=== PATIENT | female | born 1965 | race Caucasian/White ===

== ENCOUNTER 2016-07-02 11:17 | Emergency (ER) | payer OTHER ==
[~2016-07-02] VITALS: Ht 152.4 cm; Wt 97.1 kg
[~2016-07-02 11:17] MED LIST: AMITRIPTYLINE H25 MG PO; ASPIRIN E.C.81 M1 PO; BUSPAR10 MG PO; BUTALB-APAP-CA1 EACH PO; CARAFATE1 GM PO; CATAPRES0.1 MG PO; CELEBREX100 MG PO; CLINDAMYCIN HC300 MG PO; CYCLOBENZAPRINE10 M1 PO; CYMBALTA60 MG PO; DESYREL100 MG PO; DIAZEPAM5 MG PO; DITROPAN XL10 MG PO; EFFEXOR100 MG PO; ELAVIL10 MG PO; ELAVIL25 MG PO; Effexor XR PO; FENTANYL1 EAC5 TD; FLUTICASONE PRO16 GM BOTH NARES; Flexeril PO; GLUCOPHAGE500 MG PO; INDOCIN25 MG PO; LEXAPRO20 MG PO; MEDROL DOSEPAK4 MG PO; METFORMIN HCL500 MG PO; NABUMETONE500 M1 PO; NAPROSYN500 MG PO; NIACIN ER1000 MG PO; ONDANSETRON ODT4 MG PO; OXYBUTYNIN CHLO10 MG PO; OXYCODONE HCL10 MG PO; OXYCODONE HCL5 MG PO; OXYCODONE-APAP1 EAC6 PO; OxyCODONE PO; PERCOCET 5/31 TABLET PO; PHENERGAN12.5 M1 PO; PREDNISONE20 M1 PO; PREDNISONE20 MG PO; PRILOSEC10 MG PO; PRILOSEC40 MG PO; PRINIVIL5 MG PO; PROCARDIA XL30 MG PO; Prilosec PO; REQUIP0.25 MG PO; REQUIP1 MG PO; REQUIP2 MG PO; ROPINIROLE HCL1 MG PO; Reglan PO; SERTRALINE HCL50 MG PO; SIMVASTATIN40 M1 PO; SKELAXIN800 MG PO; SUCRALFATE1 GM PO; SUMATRIPTAN SU100 MG PO; SYMBICORT60 INHALAT IH; TEGRETOL-XR,CA100 MG PO; TOPAMAX100 MG PO; TOPAMAX50 MG PO; TRAMADOL HCL50 MG PO; TRAZODONE HCL150 MG PO; TRAZODONE HCL300 MG PO; Tylenol Regular Stre PO; ULTRACET1 TABLET PO; ULTRAM50 MG PO; VALIUM2 MG PO; VALIUM5 MG PO; VENLAFAXINE HC150 M1 PO; VENLAFAXINE HCL75 M3 PO; VENTOLIN HFA18 GM IH; ZESTORETIC,P1 TABLE1 PO; ZESTORETIC,P1 TABLE2 PO; ZOCOR20 MG PO; ZOFRAN ODT4 MG PO
[2016-07-02] MEDS ORDERED: CLEOCIN300 MG PO (12:16)
[2016-07-02] MEDS ORDERED: PERCOCET 5/31 TABLET PO (12:16)
[2016-07-02 12:27] VITALS: BP 115/82
== END 2016-07-02 12:34 | disposition home or self-care (01) ==
LOC: EME 11:17 → RME 11:17
DX: H60.01 Abscess of right external ear (principal)
CPT/HCPCS: 99281; 99283

== ENCOUNTER 2016-08-11 12:10 | Emergency (ER) | payer OTHER ==
[~2016-08-11] VITALS: Ht 152.4 cm; Wt 95.4 kg
[~2016-08-11 12:10] MED LIST changes: +CLEOCIN300 MG PO
[2016-08-11 12:26] VITALS: BP 114/74
[2016-08-11 15:27] LABS: EOSINOPHIL (%) 0.7 % (0-5); EOSINOPHIL COUNT 0.1 K/uL (0-0.3); HEMATOCRIT 39.4 % (36.0-46.0); IMMATURE GRANULOCYTE (%) 0.3 % (0.0-0.7); IMMATURE GRANULOCYTE COUNT 0.2 K/uL; LYMPHOCYTE COUNT 2.1 K/uL (1.0-2.8); MCH 32.2 PG (29.0-34.0); MCHC 34.3 G/DL (30.0-36.0); MEAN PLAT.VOLUME 9.2 uM^3 (9.5-12.4); MONOCYTE (%) 6.4 % (3-12); MONOCYTE COUNT 0.5 K/uL (0-0.8); NEUTROPHIL (%) 64.6 % (45-76); NEUTROPHIL COUNT 4.9 K/uL (1.8-6.4); PLATELET COUNT 238 K/uL (156-360); RBC DIS.WIDTH-CV 12.8 % (11.8-14.6); RBC DIS.WIDTH-SD 42.5 % (39-53); RED BLOOD COUNT 4.19 M/uL (3.80-5.20); WHITE BLOOD COUNT 7.6 K/uL (4.1-10.2)
[2016-08-11 15:36] LABS: CHLORIDE 108 mEq/L (99-109); POTASSIUM 3.6 mEq/L (3.7-5.4); SODIUM 141 mEq/L (136-147)
[2016-08-11 15:38] LABS: GLUCOSE 101 mg/dL (70-99)
[2016-08-11 15:40] LABS: ANION GAP 12 MEQ/L (2-14)
[2016-08-11 15:54] LABS: GFR ESTIMATE (CALCULATED) > 59 mL/min/; UREA NITROGEN (BUN) 10 mg/dL (9-23)
[2016-08-11 15:57] LABS: INTER. NORMALIZED RATIO 2.8; PROTHROMBIN TIME 29.3 (9.2-11.2)
[2016-08-11 16:51] LABS: APPEARANCE HAZY/YELLOW; RED CELL AREA COUNTED 0.4; RED CELL COUNT 600 /MM^3 (0-1); RED CELL DILUTION 12; WBC DILUTION 12; WHITE CELL RAW COUNT 99
[2016-08-11 16:52] LABS: WBC AREA COUNTED 0.4; WHITE CELL COUNT 29700 /MM^3 (0-200.0)
[2016-08-11 17:02] LABS: MONO RAW COUNT 16; MONONUCLEAR WBC'S 16 %; POLY RAW COUNT 84; POLYNUCLEAR WBC'S 84 % (0-25); SYNOVIAL FLUID EOSINOPHILS 0 % (0-25)
[2016-08-11] MEDS ORDERED: MOBIC15 MG PO (17:10)
[2016-08-12 06:47] LABS: CRYSTALS NO CRYSTALS SEEN
[2016-08-12 10:31] LABS: LYME DISEASE SEROLOGY SCREEN NEGATIVE (NEGATIVE)
== END 2016-08-11 19:02 | disposition left against medical advice (07) ==
LOC: EME 12:10
PROVIDERS: Physician Assistant
PROC: 0S9D3ZZ Drainage of Left Knee Joint, Percutaneous Approach (ICD-10-PCS; principal; 2016-08-11)
DX: M25.462 Effusion, left knee (principal); M17.9 Osteoarthritis of knee, unspecified
CPT/HCPCS: 73564; 80048; 83605; 85025; 85610; 86618; 86705; 87040; 87205; 87340; 89051; 89060; 99281; 99284; J3010

== ENCOUNTER 2017-04-10 12:02 | Emergency (ER) | payer OTHER ==
[~2017-04-10] VITALS: Ht 152.4 cm; Wt 102.7 kg
[~2017-04-10 12:02] MED LIST changes: +MOBIC15 MG PO
[2017-04-10 12:55] LABS: ADD MIUA? YES; BILIRUBIN NEGATIVE; BLOOD NEGATIVE; COLOR YELLOW ((YELLOW)); GLUCOSE (STRIP) NEGATIVE; KETONES NEGATIVE; LEUKOCYTES TRACE; NITRITE NEGATIVE; PROTEIN (STRIP) 30; SPECIFIC GRAVITY 1.008 (1.000-1.030); UROBILINOGEN 0.2 MG/DL (0.2-1.0)
[2017-04-10 12:59] LABS: HEMATOCRIT 45.3 % (36.0-46.0); MCH 32.8 PG (29.0-34.0); MCHC 34.9 G/DL (30.0-36.0); MEAN PLAT.VOLUME 9.4 uM^3 (9.5-12.4); PLATELET COUNT 239 K/uL (156-360); RBC DIS.WIDTH-CV 14.2 % (11.8-14.6); RBC DIS.WIDTH-SD 48.9 % (39-53); RED BLOOD COUNT 4.82 M/uL (3.80-5.20); WHITE BLOOD COUNT 6.3 K/uL (4.1-10.2)
[2017-04-10 13:05] LABS: PROTHROMBIN TIME 22.9 SEC (10.2-12.9)
[2017-04-10 13:07] LABS: PTT 40.2 SEC (25-37)
[2017-04-10 13:08] LABS: EPITHELIAL CELLS 1+ /HPF
[2017-04-10 13:09] LABS: ADD MEDTOX COMMENT Y; AMPHETAMINE NEGATIVE (500 ng/mL); BACTERIA 1+ /HPF; BARBITURATES NEGATIVE (200 ng/mL); BENZODIAZEPINES PRESUMPTIVE POSITIVE (150 ng/mL); CASTS NONE SEEN /LPF; COCAINE NEGATIVE (150 ng/mL); CRYSTALS NONE SEEN; INTERNAL CONTROLS VALID? YES; METHADONE NEGATIVE (200 ng/mL); METHAMPHETAMINE NEGATIVE (500 ng/mL); MUCUS NONE SEEN /LPF; OPIATES (MORPHINE) NEGATIVE (100 ng/mL); OXYCODONE NEGATIVE (100 ng/mL); PHENCYCLIDINE NEGATIVE (25 ng/mL); PROPOXYPHENE NEGATIVE (300 ng/mL); RED BLOOD CELLS 0-5 /HPF (0-5); THC CANNABINOIDS PRESUMPTIVE POSITIVE (50 ng/mL); TRICYCLIC ANTIDEPRESSANTS PRESUMPTIVE POSITIVE (300 ng/mL); WHITE BLOOD CELLS 0-5 /HPF (0-5)
[2017-04-10 13:09] LABS: CHLORIDE 113 mEq/L (99-109); POTASSIUM 3.7 mEq/L (3.7-5.4); SODIUM 144 mEq/L (136-147)
[2017-04-10 13:12] LABS: GLUCOSE 116 mg/dL (70-99)
[2017-04-10 13:13] LABS: ANION GAP 10 MEQ/L (2-14)
[2017-04-10 13:14] LABS: TOTAL BILIRUBIN 0.4 mg/dL (0.0-1.0)
[2017-04-10 13:15] LABS: ALKALINE PHOSPHATASE 93 IU/L (3-129); SERUM ETHYL ALCOHOL < 10 mg/dL
[2017-04-10 13:16] LABS: GFR ESTIMATE (CALCULATED) > 59 mL/min/
[2017-04-10 13:17] LABS: UREA NITROGEN (BUN) 10 mg/dL (9-23)
[2017-04-10 14:04] LABS: BENZODIAZEPINES QUANT VALUE 0 NG/ML; BENZODIAZEPINES, URINE SCREEN Negative (200 ng/mL)
[2017-04-10] MEDS ORDERED: ATARAX,VISTARIL25 MG PO (14:29)
[2017-04-10 15:04] VITALS: BP 140/111
== END 2017-04-10 15:41 | disposition home or self-care (01) ==
LOC: EME 12:02
PROVIDERS: Emergency Medicine
DX: F41.9 Anxiety disorder, unspecified (principal); F19.10 Other psychoactive substance abuse, uncomplicated; F12.90 Cannabis use, unspecified, uncomplicated; E78.5 Hyperlipidemia, unspecified; I10 Essential (primary) hypertension; Z79.01 Long term (current) use of anticoagulants; Z86.718 Personal history of other venous thrombosis and embolism; F17.200 Nicotine dependence, unspecified, uncomplicated; Z88.8 Allergy status to other drugs, medicaments and biological substances
CPT/HCPCS: 80053; 81003; 84999; 85027; 85610; 85730; 99281; 99284; G0480

== ENCOUNTER 2017-04-10 22:16 | Emergency (ER) | payer OTHER ==
[~2017-04-10] VITALS: Ht 152.4 cm; Wt 102.7 kg
[~2017-04-10 22:16] MED LIST changes: +ATARAX,VISTARIL25 MG PO
[2017-04-10 22:58] LABS: HEMATOCRIT 43.3 % (36.0-46.0); MCHC 35.3 G/DL (30.0-36.0); MCV 93.3 FL (83-99); MEAN PLAT.VOLUME 9.3 uM^3 (9.5-12.4); PLATELET COUNT 217 K/uL (156-360); RBC DIS.WIDTH-CV 14.1 % (11.8-14.6); RBC DIS.WIDTH-SD 48.7 % (39-53); RED BLOOD COUNT 4.64 M/uL (3.80-5.20); WHITE BLOOD COUNT 7.3 K/uL (4.1-10.2)
[2017-04-10 23:10] LABS: CHLORIDE 112 mEq/L (99-109); POTASSIUM 3.1 mEq/L (3.7-5.4); SODIUM 142 mEq/L (136-147)
[2017-04-10 23:12] LABS: GLUCOSE 104 mg/dL (70-99)
[2017-04-10 23:13] LABS: ANION GAP 11 MEQ/L (2-14)
[2017-04-10 23:16] LABS: GFR ESTIMATE (CALCULATED) > 59 mL/min/
[2017-04-10 23:17] LABS: UREA NITROGEN (BUN) 10 mg/dL (9-23)
[2017-04-10 23:20] LABS: TROP-I INTERPRETATION NEGATIVE; TROPONIN-I < 0.01 ng/mL (0.0-0.30)
[2017-04-11 00:28] VITALS: BP 131/86
[2017-04-12] MEDS ORDERED: TRAZODONE HCL50 MG PO (20:31)
== END 2017-04-11 00:29 | disposition home or self-care (01) ==
LOC: EME 22:16
PROVIDERS: Emergency Medicine
DX: J20.9 Acute bronchitis, unspecified (principal); R51 Headache; K58.9 Irritable bowel syndrome, unspecified; I10 Essential (primary) hypertension; G25.81 Restless legs syndrome; F41.9 Anxiety disorder, unspecified; E78.5 Hyperlipidemia, unspecified; F17.200 Nicotine dependence, unspecified, uncomplicated; Z88.0 Allergy status to penicillin
CPT/HCPCS: 71010; 80048; 82803; 83605; 83880; 84484; 85027; 87040; 93005; 94640; 99281; 99284

== ENCOUNTER 2017-04-12 16:09 | Emergency (ER) | payer OTHER ==
[~2017-04-12] VITALS: Ht 152.4 cm; Wt 85.7 kg
[2017-04-12 20:20] LABS: EOSINOPHIL (%) 0.5 % (0-5); IMMATURE GRANULOCYTE (%) 0.1 % (0.0-0.7); LYMPHOCYTE COUNT 2.9 K/uL (1.0-2.8); MCH 32.8 PG (29.0-34.0); MCHC 35.5 G/DL (30.0-36.0); MCV 92.6 FL (83-99); MEAN PLAT.VOLUME 9.4 uM^3 (9.5-12.4); MONOCYTE (%) 5.2 % (3-12); MONOCYTE COUNT 0.4 K/uL (0-0.8); NEUTROPHIL (%) 54.1 % (45-76); PLATELET COUNT 248 K/uL (156-360); RBC DIS.WIDTH-CV 13.9 % (11.8-14.6); RBC DIS.WIDTH-SD 47.6 % (39-53); RED BLOOD COUNT 4.75 M/uL (3.80-5.20); WHITE BLOOD COUNT 7.3 K/uL (4.1-10.2)
[2017-04-12] MEDS ORDERED: TRAZODONE HCL50 MG PO (20:31)
[2017-04-12 20:34] LABS: CHLORIDE 111 mEq/L (99-109); POTASSIUM 2.9 mEq/L (3.7-5.4); SODIUM 146 mEq/L (136-147)
[2017-04-12 20:36] LABS: GLUCOSE 119 mg/dL (70-99)
[2017-04-12 20:37] LABS: ANION GAP 17 MEQ/L (2-14)
[2017-04-12 20:39] LABS: SERUM ETHYL ALCOHOL < 10 mg/dL
[2017-04-12 20:40] LABS: ALKALINE PHOSPHATASE 85 IU/L (3-129); GFR ESTIMATE (CALCULATED) > 59 mL/min/
[2017-04-12 20:42] LABS: UREA NITROGEN (BUN) 15 mg/dL (9-23)
[2017-04-12 20:43] LABS: SALICYLATE < 5.0 MG/DL (15-30); TOTAL BILIRUBIN 0.8 mg/dL (0.0-1.0)
[2017-04-12 20:45] LABS: ADD MIUA? YES; BILIRUBIN SMALL; BLOOD NEGATIVE; COLOR AMBER ((YELLOW)); GLUCOSE (STRIP) NEGATIVE; KETONES 20; LEUKOCYTES TRACE; NITRITE NEGATIVE; PROTEIN (STRIP) 100
[2017-04-12 21:06] LABS: BACTERIA RARE /HPF; CALCIUM OXALATE CRYSTALS 4+ /HPF; EPITHELIAL CELLS 3+ /HPF; HYALINE CASTS 0-5 /LPF; MUCUS TRACE /LPF; RED BLOOD CELLS 0-5 /HPF (0-5); UCUL ADDED? NO; WHITE BLOOD CELLS 0-5 /HPF (0-5)
[2017-04-12 21:10] VITALS: BP 127/77
[2017-04-12 21:26] LABS: AMPHETAMINE NEGATIVE (500 ng/mL); BARBITURATES NEGATIVE (200 ng/mL); BENZODIAZEPINES PRESUMPTIVE POSITIVE (150 ng/mL); COCAINE NEGATIVE (150 ng/mL); INTERNAL CONTROLS VALID? YES; METHADONE NEGATIVE (200 ng/mL); METHAMPHETAMINE NEGATIVE (500 ng/mL); OPIATES (MORPHINE) NEGATIVE (100 ng/mL); OXYCODONE NEGATIVE (100 ng/mL); PHENCYCLIDINE NEGATIVE (25 ng/mL); PROPOXYPHENE NEGATIVE (300 ng/mL); THC CANNABINOIDS PRESUMPTIVE POSITIVE (50 ng/mL); TRICYCLIC ANTIDEPRESSANTS PRESUMPTIVE POSITIVE (300 ng/mL)
[2017-04-12 21:27] LABS: ADD MEDTOX COMMENT Y
[2017-04-12 21:56] LABS: BENZODIAZEPINES, URINE SCREEN POSITIVE (200 ng/mL)
[2017-04-13] MEDS ORDERED: TRAZODONE HCL50 MG PO (18:09)
[2017-04-13] MEDS ORDERED: REMERON45 MG PO (18:09)
[2017-04-13] MEDS ORDERED: ATARAX,VISTARIL25 MG PO (18:10)
[2017-04-13] MEDS ORDERED: ZOFRAN4 MG PO (18:10)
[2017-04-13] MEDS ORDERED: WELLBUTRIN XL300 MG PO (18:10)
[2017-04-13] MEDS ORDERED: COUMADIN6 MG PO (18:11)
[2017-04-13] MEDS ORDERED: IMITREX100 MG PO (18:11)
[2017-04-13] MEDS ORDERED: ATIVAN1 MG PO (18:11)
[2017-04-13] MEDS ORDERED: ELAVIL50 MG PO (18:12)
== END 2017-04-12 21:10 | disposition home or self-care (01) ==
LOC: EME 16:09
PROVIDERS: Emergency Medicine
DX: G47.00 Insomnia, unspecified (principal); F41.1 Generalized anxiety disorder; F34.1 Dysthymic disorder; F43.10 Post-traumatic stress disorder, unspecified; F13.10 Sedative, hypnotic or anxiolytic abuse, uncomplicated; F19.90 Other psychoactive substance use, unspecified, uncomplicated; I10 Essential (primary) hypertension; E11.9 Type 2 diabetes mellitus without complications; Z79.84 Long term (current) use of oral hypoglycemic drugs; E78.5 Hyperlipidemia, unspecified; K58.9 Irritable bowel syndrome, unspecified; G25.81 Restless legs syndrome; F17.200 Nicotine dependence, unspecified, uncomplicated; Z88.0 Allergy status to penicillin
CPT/HCPCS: 80053; 81003; 84999; 85025; 90839; 99281; 99283; G0480

== ENCOUNTER 2017-04-13 10:23 | Inpatient (IN) | payer OTHER ==
[~2017-04-13] VITALS: Ht 157.5 cm; Wt 85.0 kg
[~2017-04-13 10:23] MED LIST changes: +TRAZODONE HCL50 MG PO
[2017-04-13 11:23] LABS: EOSINOPHIL (%) 0.4 % (0-5); HEMATOCRIT 43.9 % (36.0-46.0); IMMATURE GRANULOCYTE (%) 0.1 % (0.0-0.7); INSTRUMENT ABS NEUTROPHIL CT 4.5 K/uL; LYMPHOCYTE COUNT 2.1 K/uL (1.0-2.8); MCHC 35.8 G/DL (30.0-36.0); MCV 92.2 FL (83-99); MEAN PLAT.VOLUME 9.6 uM^3 (9.5-12.4); MONOCYTE (%) 4.2 % (3-12); MONOCYTE COUNT 0.3 K/uL (0-0.8); NEUTROPHIL (%) 65.2 % (45-76); NEUTROPHIL COUNT 4.5 K/uL (1.8-6.4); PLATELET COUNT 257 K/uL (156-360); RBC DIS.WIDTH-CV 13.6 % (11.8-14.6); RBC DIS.WIDTH-SD 46.6 % (39-53); RED BLOOD COUNT 4.76 M/uL (3.80-5.20); WHITE BLOOD COUNT 6.9 K/uL (4.1-10.2)
[2017-04-13 11:31] LABS: ADD MIUA? YES; BILIRUBIN NEGATIVE; BLOOD NEGATIVE; COLOR AMBER ((YELLOW)); GLUCOSE (STRIP) NEGATIVE; KETONES 80; LEUKOCYTES NEGATIVE; NITRITE NEGATIVE; PROTEIN (STRIP) 100; SPECIFIC GRAVITY 1.025 (1.000-1.030)
[2017-04-13 11:33] LABS: CHLORIDE 112 mEq/L (99-109); POTASSIUM 3.2 mEq/L (3.7-5.4); SODIUM 145 mEq/L (136-147)
[2017-04-13 11:35] LABS: GLUCOSE 129 mg/dL (70-99)
[2017-04-13 11:36] LABS: ANION GAP 16 MEQ/L (2-14)
[2017-04-13 11:38] LABS: SERUM ETHYL ALCOHOL < 10 mg/dL
[2017-04-13 11:39] LABS: GFR ESTIMATE (CALCULATED) > 59 mL/min/
[2017-04-13 11:40] LABS: UREA NITROGEN (BUN) 14 mg/dL (9-23)
[2017-04-13 11:44] LABS: AMPHETAMINE NEGATIVE (500 ng/mL); BARBITURATES NEGATIVE (200 ng/mL); BENZODIAZEPINES PRESUMPTIVE POSITIVE (150 ng/mL); COCAINE NEGATIVE (150 ng/mL); INTERNAL CONTROLS VALID? YES; METHADONE NEGATIVE (200 ng/mL); METHAMPHETAMINE NEGATIVE (500 ng/mL); OPIATES (MORPHINE) NEGATIVE (100 ng/mL); OXYCODONE NEGATIVE (100 ng/mL); PHENCYCLIDINE NEGATIVE (25 ng/mL); PROPOXYPHENE NEGATIVE (300 ng/mL); THC CANNABINOIDS PRESUMPTIVE POSITIVE (50 ng/mL); TRICYCLIC ANTIDEPRESSANTS PRESUMPTIVE POSITIVE (300 ng/mL)
[2017-04-13 11:45] LABS: ADD MEDTOX COMMENT Y
[2017-04-13 11:52] LABS: BACTERIA 1+ /HPF; EPITHELIAL CELLS 2+ /HPF; MUCUS 2+ /LPF; RED BLOOD CELLS 0-5 /HPF (0-5); WHITE BLOOD CELLS 0-5 /HPF (0-5)
[2017-04-13 12:33] LABS: BENZODIAZEPINES, URINE SCREEN POSITIVE (200 ng/mL)
[2017-04-13 14:28] VITALS: BP 198/104
[2017-04-13 16:10] VITALS: BP 157/104
[2017-04-13 17:03] VITALS: BP 190/120
[2017-04-13 17:27] VITALS: BP 180/122
[2017-04-13] MEDS ORDERED: REMERON45 MG PO (18:09)
[2017-04-13] MEDS ORDERED: TRAZODONE HCL50 MG PO (18:09)
[2017-04-13] MEDS ORDERED: WELLBUTRIN XL300 MG PO (18:10)
[2017-04-13] MEDS ORDERED: ATARAX,VISTARIL25 MG PO (18:10)
[2017-04-13] MEDS ORDERED: ZOFRAN4 MG PO (18:10)
[2017-04-13] MEDS ORDERED: ATIVAN1 MG PO (18:11)
[2017-04-13] MEDS ORDERED: IMITREX100 MG PO (18:11)
[2017-04-13] MEDS ORDERED: COUMADIN6 MG PO (18:11)
[2017-04-13] MEDS ORDERED: ELAVIL50 MG PO (18:12)
[2017-04-13 18:18] VITALS: BP 175/94
[2017-04-13 18:50] VITALS: BP 180/130; BP 200/140
[2017-04-14] MEDS ORDERED: AMLODIPINE BESY10 MG PO (10:46)
[2017-04-14] MEDS ORDERED: ASPIR-LOW81 MG PO (10:47)
[2017-04-14] MEDS ORDERED: LISINOPRIL20 MG PO (10:47)
[2017-04-14] MEDS ORDERED: TYLENOL REGULA325 MG PO (10:47)
[2017-04-14] MEDS ORDERED: LIPITOR20 MG PO (10:48)
[2017-04-14] MEDS ORDERED: CLONIDINE HCL0.1 MG PO (10:49)
[2017-04-14] MEDS ORDERED: NICOTINE PATCH1 EAC2 TD (11:10)
== END 2017-04-13 19:29 | DRG 881 ==
LOC: EME 10:23 → EDOF 13:01 → ENRESERVDT 14:00 → ENRESERV 14:00 → ENRESERVTM 14:00 → 1WEST 14:11 → ENRESERV 19:28 → 1WEST 19:29 → 4EAST 19:29 → 1WEST 19:53 → 4EAST 19:53 → 1WEST 20:00
PROVIDERS: Emergency Medicine
DX: F32.9 Major depressive disorder, single episode, unspecified (principal); E78.5 Hyperlipidemia, unspecified; I10 Essential (primary) hypertension; R45.851 Suicidal ideations; F17.200 Nicotine dependence, unspecified, uncomplicated; F41.9 Anxiety disorder, unspecified; E86.0 Dehydration
CPT/HCPCS: 71010; 80048; 80053; 81003; 82803; 83605; 83880; 84484; 84999; 85025; 85027; 85610; 85730; 87040; 90839; 93005; 94640; 99281; 99283; 99284; G0480

== ENCOUNTER 2017-04-13 19:22 | Observation (INO) | payer OTHER ==
[~2017-04-13] VITALS: Ht 152.4 cm; Wt 85.5 kg
[~2017-04-13 19:22] MED LIST changes: +ATIVAN1 MG PO; +COUMADIN6 MG PO; +ELAVIL50 MG PO; +IMITREX100 MG PO; +REMERON45 MG PO; +WELLBUTRIN XL300 MG PO; +ZOFRAN4 MG PO
[2017-04-13 20:02] VITALS: BP 198/127
[2017-04-13 20:26] LABS: ANION GAP 12 MEQ/L (2-14); CHLORIDE 109 MEQ/L (99-109); MAGNESIUM 1.7 mg/dl (1.3-2.7); POTASSIUM 3.1 MEQ/L (3.7-5.4); SAMPLE HEMOLYSIS CHECK 0; SAMPLE ICTERIC CHECK 0; SAMPLE LIPEMIA CHECK 0; SODIUM 142 MEQ/L (136-147)
[2017-04-13 20:32] LABS: GFR ESTIMATE (CALCULATED) > 59 mL/min/; GLUCOSE 109 mg/dL (70-99); UREA NITROGEN (BUN) 14 mg/dL (9-23)
[2017-04-13 20:33] LABS: INTER. NORMALIZED RATIO 1.6; PROTHROMBIN TIME 18.1 SEC (10.2-12.9)
[2017-04-13 23:44] VITALS: BP 174/74
[2017-04-14 02:47] VITALS: BP 109/65
[2017-04-14 05:58] LABS: ANION GAP 8 MEQ/L (2-14); CHLORIDE 111 MEQ/L (99-109); GFR ESTIMATE (CALCULATED) > 59 mL/min/; GLUCOSE 113 mg/dL (70-99); POTASSIUM 3.3 MEQ/L (3.7-5.4); SAMPLE HEMOLYSIS CHECK 0; SAMPLE ICTERIC CHECK 0; SAMPLE LIPEMIA CHECK 0; SODIUM 142 MEQ/L (136-147); UREA NITROGEN (BUN) 14 mg/dL (9-23)
[2017-04-14 07:01] LABS: INTER. NORMALIZED RATIO 1.6; PROTHROMBIN TIME 18.3 SEC (10.2-12.9)
[2017-04-14 07:03] LABS: PTT 35.7 SEC (25-37)
[2017-04-14 08:10] VITALS: BP 143/84
[2017-04-14 08:47] LABS: Estimated Average Glucose 114 mg/dL (70-123); HEMOGLOBIN A1c (GLYCOHEMOGLOB) 5.6 % HGB (Below 5.7)
[2017-04-14] MEDS ORDERED: AMLODIPINE BESY10 MG PO (10:46)
[2017-04-14] MEDS ORDERED: TYLENOL REGULA325 MG PO (10:47)
[2017-04-14] MEDS ORDERED: ASPIR-LOW81 MG PO (10:47)
[2017-04-14] MEDS ORDERED: LISINOPRIL20 MG PO (10:47)
[2017-04-14] MEDS ORDERED: LIPITOR20 MG PO (10:48)
[2017-04-14] MEDS ORDERED: CLONIDINE HCL0.1 MG PO (10:49)
[2017-04-14] MEDS ORDERED: NICOTINE PATCH1 EAC2 TD (11:10)
[2017-04-14 12:07] VITALS: BP 120/75
== END 2017-04-14 15:12 ==
LOC: 4EAST 19:22 → ENRESERV 19:23 → CANRESERV 19:23 → 4EAST 19:52 → ENPENDDIS 04-14 → 4EAST 04-14 10:45
PROVIDERS: Family Medicine
DX: I16.0 Hypertensive urgency (principal); I10 Essential (primary) hypertension; F41.1 Generalized anxiety disorder; E78.5 Hyperlipidemia, unspecified; Z86.711 Personal history of pulmonary embolism; Z86.718 Personal history of other venous thrombosis and embolism; Z79.01 Long term (current) use of anticoagulants; M19.90 Unspecified osteoarthritis, unspecified site; F17.200 Nicotine dependence, unspecified, uncomplicated; R80.9 Proteinuria, unspecified; E87.6 Hypokalemia; E11.9 Type 2 diabetes mellitus without complications; K21.9 Gastro-esophageal reflux disease without esophagitis; E66.3 Overweight; E87.2 Acidosis; R45.851 Suicidal ideations; Z81.1 Family history of alcohol abuse and dependence; Z82.0 Family history of epilepsy and other diseases of the nervous system; Z88.0 Allergy status to penicillin; Z88.8 Allergy status to other drugs, medicaments and biological substances
CPT/HCPCS: 80048; 80048 91; 83036; 83735; 85610; 85730; G0378; J0360; J1650; J2060; J7030

== ENCOUNTER 2017-04-14 12:38 | Inpatient (IN) | payer OTHER ==
[~2017-04-14] VITALS: Ht 154.9 cm; Wt 88.4 kg
[~2017-04-14 12:38] MED LIST changes: +AMLODIPINE BESY10 MG PO; +ASPIR-LOW81 MG PO; +CLONIDINE HCL0.1 MG PO; +LIPITOR20 MG PO; +LISINOPRIL20 MG PO; +NICOTINE PATCH1 EAC2 TD; +TYLENOL REGULA325 MG PO
[2017-04-14 16:28] VITALS: BP 128/74
[2017-04-14 20:46] VITALS: BP 142/90
[2017-04-15 07:38] VITALS: BP 121/76
[2017-04-15 12:03] LABS: INTER. NORMALIZED RATIO 1.4; PROTHROMBIN TIME 16.1 SEC (10.2-12.9)
[2017-04-15 15:21] VITALS: BP 113/60
[2017-04-16 07:31] VITALS: BP 111/57
[2017-04-16 09:33] LABS: INTER. NORMALIZED RATIO 1.3; PROTHROMBIN TIME 13.9 SEC (10.2-12.9)
[2017-04-16 15:42] VITALS: BP 146/84
[2017-04-17 08:07] VITALS: BP 140/97
[2017-04-17 10:11] LABS: INTER. NORMALIZED RATIO 1.4; PROTHROMBIN TIME 15.5 SEC (10.2-12.9)
[2017-04-17 17:58] VITALS: BP 115/72
[2017-04-18 07:36] VITALS: BP 106/60
[2017-04-18 08:01] LABS: INTER. NORMALIZED RATIO 1.5; PROTHROMBIN TIME 16.2 SEC (10.2-12.9)
[2017-04-18] MEDS ORDERED: DESYREL100 MG PO (10:15)
[2017-04-18] MEDS ORDERED: AMITRIPTYLINE H50 MG PO (10:15)
[2017-04-18] MEDS ORDERED: DIAZEPAM5 MG PO (10:15)
[2017-04-18] MEDS ORDERED: COUMADIN6 MG PO ×2 (10:15→10:57)
[2017-04-18] MEDS ORDERED: COUMADIN4 MG PO (11:01)
== END 2017-04-18 12:49 | disposition home or self-care (01) | DRG 885 ==
LOC: 1WEST 12:38 → ENRESERV 12:39 → 1WEST 15:14
PROVIDERS: Psychiatry & Neurology Psychiatry
DX: F33.3 Major depressive disorder, recurrent, severe with psychotic symptoms (principal); F41.1 Generalized anxiety disorder; F12.90 Cannabis use, unspecified, uncomplicated; F13.90 Sedative, hypnotic, or anxiolytic use, unspecified, uncomplicated; Z79.01 Long term (current) use of anticoagulants; G89.29 Other chronic pain; R45.851 Suicidal ideations; Z91.19 Patient's noncompliance with other medical treatment and regimen; F34.1 Dysthymic disorder
CPT/HCPCS: 85610; 97150 GO; 97166 GO; J1650

== ENCOUNTER 2017-07-11 01:49 | Emergency (ER) | payer OTHER ==
[~2017-07-11] VITALS: Ht 152.4 cm; Wt 92.8 kg
[~2017-07-11 01:49] MED LIST changes: +AMITRIPTYLINE H50 MG PO; +COUMADIN4 MG PO
[2017-07-11] MEDS ORDERED: PERCOCET 5/31 TABLET PO (05:52)
[2017-07-11 06:58] VITALS: BP 127/72
== END 2017-07-11 06:59 | disposition home or self-care (01) ==
LOC: EME 01:49
DX: S93.401A Sprain of unspecified ligament of right ankle, initial encounter (principal); S40.012A Contusion of left shoulder, initial encounter; S50.02XA Contusion of left elbow, initial encounter; S90.511A Abrasion, right ankle, initial encounter; S09.90XA Unspecified injury of head, initial encounter; W18.2XXA Fall in (into) shower or empty bathtub, initial encounter; Y92.002 Bathroom of unspecified non-institutional (private) residence as the place of occurrence of the external cause; E78.5 Hyperlipidemia, unspecified; J44.9 Chronic obstructive pulmonary disease, unspecified; G25.81 Restless legs syndrome; K58.9 Irritable bowel syndrome, unspecified; F17.200 Nicotine dependence, unspecified, uncomplicated; Z88.1 Allergy status to other antibiotic agents; Z88.8 Allergy status to other drugs, medicaments and biological substances
CPT/HCPCS: 70450; 73030; 73080; 73610; 99281; 99284

== ENCOUNTER 2017-09-21 13:50 | Emergency (ER) | payer OTHER ==
[~2017-09-21] VITALS: Ht 152.4 cm; Wt 95.0 kg
[2017-09-21 13:58] VITALS: BP 126/81
== END 2017-09-21 16:40 | disposition left against medical advice (07) ==
LOC: EME 13:50
DX: Z53.21 Procedure and treatment not carried out due to patient leaving prior to being seen by health care provider (principal)

== ENCOUNTER 2017-12-05 19:35 | Observation (INO) | payer OTHER ==
[~2017-12-05] VITALS: Ht 152.4 cm; Wt 100.9 kg
[2017-12-05 20:44] LABS: HEMATOCRIT 41.3 % (36.0-46.0); HEMOGLOBIN 14.7 G/DL (11.9-15.5); MCH 34.3 PG (29.0-34.0); MCHC 35.6 G/DL (30.0-36.0); MCV 96.5 FL (83-99); PLATELET COUNT 200 K/uL (156-360); RBC DIS.WIDTH-CV 12.7 % (11.8-14.6); RBC DIS.WIDTH-SD 45.1 % (39-53); RED BLOOD COUNT 4.28 M/uL (3.80-5.20); WHITE BLOOD COUNT 6.7 K/uL (4.1-10.2)
[2017-12-05 20:53] LABS: D-DIMER ELISA < 150.00 ng/mLDDU (<230)
[2017-12-05 20:57] LABS: CHLORIDE 105 mEq/L (99-109); POTASSIUM 4.3 mEq/L (3.7-5.4); SODIUM 141 mEq/L (136-147)
[2017-12-05 20:58] LABS: GLUCOSE 80 mg/dL (70-99)
[2017-12-05 21:02] LABS: CREATININE 0.9 mg/dL (0.6-1.3); GFR ESTIMATE (CALCULATED) > 59 mL/min/
[2017-12-05 21:03] LABS: UREA NITROGEN (BUN) 11 mg/dL (9-23)
[2017-12-05 21:06] LABS: TROP-I INTERPRETATION NEGATIVE; TROPONIN-I < 0.01 ng/mL (0.0-0.30)
[2017-12-05 21:58] LABS: INTER. NORMALIZED RATIO 2.2
[2017-12-05 22:01] LABS: PTT 39.9 SEC (25-37)
[2017-12-06 00:32] LABS: PCO2 46 mm Hg (35-45); PO2 77 mm Hg (80-100); pH 7.34 (7.35-7.45)
[2017-12-06 00:33] LABS: BASE EXCESS -1.3 mEq/L (-3 to +3); BICARBONATE 26.2 mEq/L (22-26); COMMENTS - BLOOD GASES A+C+; DEVICE NC; O2 FLOW 2 L/MIN; SITE LR; TOTAL RESP RATE 16 resp/min
[2017-12-06] MEDS ORDERED: WARFARIN SODIUM5 MG PO (00:50)
[2017-12-06] MEDS ORDERED: WARFARIN SODIUM3 MG PO (01:02)
[2017-12-06] MEDS ORDERED: COUMADIN5 MG PO (01:07)
[2017-12-06] MEDS ORDERED: CLONAZEPAM1 MG PO ×2 (01:09→01:21)
[2017-12-06] MEDS ORDERED: OMEPRAZOLE40 M1 PO (01:10)
[2017-12-06 01:36] VITALS: BP 110/56
[2017-12-06 03:54] VITALS: BP 96/55
[2017-12-06 06:46] VITALS: BP 109/65
[2017-12-06] MEDS ORDERED: TUMS500 MG PO ×2 (07:43→12:21)
[2017-12-06] MEDS ORDERED: NITROSTAT0.4 MG SL ×2 (07:43→12:21)
[2017-12-06] MEDS ORDERED: MAG-AL PLUS SUS30 ML PO ×2 (07:43→12:21)
[2017-12-06] MEDS ORDERED: CELECOXIB200 MG PO ×2 (07:43→12:21)
[2017-12-06 09:50] LABS: HDL CHOLESTEROL 39 MG/DL (Desirable>=50); LDL CHOLESTEROL 183 mg/dL (Desirable<100); NON-HDL CHOLESTEROL 238 mg/dL (Desirable<160); TOTAL CHOLESTEROL 277 mg/dL (Desirable<200); TRIGLYCERIDES 273 MG/DL (Normal: <150)
[2017-12-06 10:04] LABS: TROP-I INTERPRETATION NEGATIVE; TROPONIN-I < 0.01 ng/mL (0.0-0.30)
[2017-12-06 13:04] LABS: HEMOGLOBIN A1c (GLYCOHEMOGLOB) 5.5 % (Below 5.7)
== END 2017-12-06 13:20 | disposition home or self-care (01) ==
LOC: EME 19:35 → EDOF 12-06 00:07 → ENRESERV 12-06 00:08 → 4SOUTH 12-06 01:28
PROVIDERS: Emergency Medicine; Hospitalist; Physician Assistant Medical
DX: R07.89 Other chest pain (principal); R09.02 Hypoxemia; E66.01 Morbid (severe) obesity due to excess calories; Z68.41 Body mass index [BMI] 40.0-44.9, adult; I10 Essential (primary) hypertension; E78.5 Hyperlipidemia, unspecified; E11.9 Type 2 diabetes mellitus without complications; Z82.49 Family history of ischemic heart disease and other diseases of the circulatory system; Z86.718 Personal history of other venous thrombosis and embolism; Z86.711 Personal history of pulmonary embolism; J44.9 Chronic obstructive pulmonary disease, unspecified; G47.33 Obstructive sleep apnea (adult) (pediatric); Z91.19 Patient's noncompliance with other medical treatment and regimen; Z91.14 Patient's other noncompliance with medication regimen; I48.0 Paroxysmal atrial fibrillation; R42 Dizziness and giddiness; R11.2 Nausea with vomiting, unspecified; K21.9 Gastro-esophageal reflux disease without esophagitis; F13.10 Sedative, hypnotic or anxiolytic abuse, uncomplicated; F12.90 Cannabis use, unspecified, uncomplicated; G89.29 Other chronic pain; M79.7 Fibromyalgia; K58.0 Irritable bowel syndrome with diarrhea; F32.9 Major depressive disorder, single episode, unspecified; F41.1 Generalized anxiety disorder; Z91.5 Personal history of self-harm; F17.210 Nicotine dependence, cigarettes, uncomplicated; Z88.0 Allergy status to penicillin; Z88.8 Allergy status to other drugs, medicaments and biological substances
CPT/HCPCS: 36600; 71046; 71275; 80048; 80061; 82803; 82948; 83036; 83605; 84484; 85027; 85379; 85610; 85730; 87040; 93005; 99281; 99285; G0378; J3010; J7030

== ENCOUNTER 2018-02-08 22:49 | Emergency (ER) | payer OTHER ==
[~2018-02-08] VITALS: Ht 152.4 cm; Wt 100.6 kg
[~2018-02-08 22:49] MED LIST changes: +CELECOXIB200 MG PO; +CLONAZEPAM1 MG PO; +COUMADIN5 MG PO; +MAG-AL PLUS SUS30 ML PO; +NITROSTAT0.4 MG SL; +OMEPRAZOLE40 M1 PO; +TUMS500 MG PO; +WARFARIN SODIUM3 MG PO; +WARFARIN SODIUM5 MG PO
[2018-02-08 23:56] LABS: HEMATOCRIT 39.9 % (36.0-46.0); MCH 33.9 PG (29.0-34.0); MCHC 35.1 G/DL (30.0-36.0); MCV 96.6 FL (83-99); PLATELET COUNT 203 K/uL (156-360); RBC DIS.WIDTH-CV 13.2 % (11.8-14.6); RBC DIS.WIDTH-SD 46.8 % (39-53); RED BLOOD COUNT 4.13 M/uL (3.80-5.20); WHITE BLOOD COUNT 6.4 K/uL (4.1-10.2)
[2018-02-09 00:05] LABS: CHLORIDE 106 mEq/L (99-109); POTASSIUM 4.2 mEq/L (3.7-5.4); SODIUM 141 mEq/L (136-147)
[2018-02-09 00:07] LABS: GLUCOSE 97 mg/dL (70-99)
[2018-02-09 00:10] LABS: SERUM ETHYL ALCOHOL < 10 mg/dL
[2018-02-09 00:11] LABS: CREATININE 0.9 mg/dL (0.6-1.3); GFR ESTIMATE (CALCULATED) > 59 mL/min/
[2018-02-09 00:12] LABS: UREA NITROGEN (BUN) 11 mg/dL (9-23)
[2018-02-09 01:04] LABS: INTER. NORMALIZED RATIO 5.5
[2018-02-09 02:28] VITALS: BP 118/73
[2018-02-09] MEDS ORDERED: ULTRAM50 MG PO (02:55)
== END 2018-02-09 03:01 | disposition home or self-care (01) ==
LOC: EME 22:49
PROVIDERS: Emergency Medicine
DX: S40.011A Contusion of right shoulder, initial encounter (principal); S00.93XA Contusion of unspecified part of head, initial encounter; R79.1 Abnormal coagulation profile; W01.0XXA Fall on same level from slipping, tripping and stumbling without subsequent striking against object, initial encounter; Z79.01 Long term (current) use of anticoagulants; Z86.711 Personal history of pulmonary embolism; Z88.0 Allergy status to penicillin; Z88.8 Allergy status to other drugs, medicaments and biological substances
CPT/HCPCS: 70450; 73030; 80048; 85027; 85610; 99281; 99284; G0480